=== PATIENT | male | born 1995 | race Caucasian/White ===

== ENCOUNTER 2018-10-12 12:39 | Inpatient (IN) | payer OTHER ==
[~2018-10-12] VITALS: Ht 177.8 cm; Wt 63.5 kg
--- NOTE | 2018-10-12 12:45 | NUR ---
Pre-assessment Note Pre-Assessment done at intake office, client is A/O x4, fully ambulatory, he presents with flat affect and anxious mood. Client reports NKDA. Client verbalized understanding of disposal of unidentifiable pills and controlled medications, unit protocol regarding vital signs Q4H, blood drawn, and urine drug test.
[2018-10-12] MEDS ORDERED: CHOL10002 PO (13:04)
--- NOTE | 2018-10-12 13:10 | NUR ---
Admission Note: "I have a problem using drugs and can't stop." Admitted a 23 year-old male for medically supervised withdrawal from heroin and benzodiazepine. Client is alert and oriented x 4, fully ambulatory. CIWA ad COWS deferred, client is mild intoxicated, he took Klonopin 1mg PO 1 hr before admission and @ 1000 he used heroin 0.4mg IV. he is noted with pinpoint pupils, anxious mood, restless, he is hyperverbal with racing thoughts, and he appear disheveled with long/oily hair, dirt under fingernails, scattered dry scabs on back and face d/t skin picking, strong body odor, and stained clothes. He appears malnourished, skin pale, dry lips, cheeks appear hollow and sunken eyes, dark circles under eyes, loss of body fat and muscle. Client reports losing weight without trying for the last 3 months, he said, "I haven't had much of an appetite, specially when I'm using heroin, which pretty much is every day." Client reports NKA, Full code, and regular diet. Vitals T 98.0, P 113, RR 16, BP 113/69, spO2 @ 99% on RA, no pain. Client reports being placed on a 5150, when he was 15 years old, he said, "I was really depressed and had suicidal thought, I told my parents and they took me to see a psychiatrist, I was diagnosed with depression and anxiety." Client denies any SI/HI. Client denies any history of withdrawal induced delirium, cardiac complications, overdose, or blackouts. He states that typical withdrawal sx include skin very sensitive to touch, have problems sleeping, no appetite, sweats, irritable, anxious, and depressed, he said, "Mornings, are the worst, I feel so down and is hard to even get out of bed." He said his symptoms get better as soon as he uses heroin and methamphetamine. He usually takes Klonopin when in awkward social situations. Substance Use History: 1) Heroin: he started using at age 16 via intravenously 0.2g daily, eventually he need to increase the dose to get the same effect, for the past three months he has been using 0.5g daily, last time consumed @ 1000 before admission. On occasion when he can not afford to buy heroin, he uses Subutex 2mg SL to help him get through the cravings and withdrawal symptoms. 2) Prescribed Klonopin: 1 mg/ 4 times a week since age 15. Last used 1mg PO 1 hour prior to admission. 3) Methamphetamine: started using since age 19. he uses 0.2gm daily smoked or IV, last used 6 hr prior to admission. 4) Marijuana: smokes 1-2 joints daily since he is 15 years-old. Psychiatric Conditions: 1. Anxiety: diagnosed at 15 years old. Prescribed Klonopin 1mg PRN 2.Depression, diagnosed at 15 years old. Client did not bring any home medications, but reports taking Vitamin D 5,000 units daily. Client denies any history of medical conditions. PCP John Amado MD Treatment History: First time in treatment in 2011 for 45 days at [facility] in [place]. Client has attempted to get sober on his own the longest period was for 6 months from January to mid-June 2018, but realized that if he wants to succeed he needs to go detox and to treatment, he said, "I want my life to move forward, it seems like everyday I move backward and it hurts my parents." Client reports taking substances just to feel normal, he has suffered for years with anxiety and depression. Client reports the consequences of his substance use are strained relation with his parents whom he is fully dependent on and the loss of his job at [employer] two years ago. Client would like to continue with his treatment, he said, "I was never really ready to stop, until now." He lives with is Mom and dad and his best friend Tramaine, his parents do not have history of substance use, but his friend Tramaine smokes cannabis on a daily basis. Dr Jim notified of client's admission. Client has not provided urine for urine drug screen. Client oriented to the unit and explained rules, procedures, and protocols. All safety measures instituted. [place] precaution. Call light within reach. Will continue to monitor.
--- NOTE | 2018-10-12 16:00 | NUR ---
DAMIAN and COWS deferred client stated, "I'm good right now, I still feeling the effects of my early use."
[2018-10-12] MEDS ORDERED: METHOCARBAMOL 750 MG TABLET PO PRN (16:15)
[2018-10-12] MEDS ORDERED: LOPERAMIDE HCL 2 MG CAPSULE PO PRN ×2 (16:15)
[2018-10-12] MEDS ORDERED: MIRALAX 17 GM POWD.PACK PO PRN (16:15)
[2018-10-12] MEDS ORDERED: diphenhydrAMINE 50 MG CAPSULE PO PRN (16:15)
[2018-10-12] MEDS ORDERED: CLONIDINE HCL 0.1 MG TABLET PO PRN (16:15)
[2018-10-12] MEDS ORDERED: BUPRENORPHINE HCL 2 MG TAB.SUBL SL PRN (16:15)
[2018-10-12] MEDS ORDERED: HYDROXYZINE PAMOATE 25 MG CAPSULE PO PRN (16:15)
[2018-10-12] MEDS ORDERED: LORAZEPAM 0.5 MG TABLET PO PRN (16:15)
[2018-10-12] MEDS ORDERED: IBUPROFEN 600 MG TABLET PO PRN (16:15)
[2018-10-12] MEDS ORDERED: MAG HYDROX/AL HYDROX/SIMETH 30 ML LIQUID UDC PO PRN (16:15)
[2018-10-12] MEDS ORDERED: 3 DAY TAPER BUPRENORPHINE -SERENITY PROTOCOL SL PRN (16:15)
[2018-10-12] MEDS ORDERED: ONDANSETRON ODT 4 MG TAB.RAPDIS SL PRN (16:15)
[2018-10-12] MEDS: MULTIVITAMINS,THERAPEUTIC TABLET PO SCH (16:15)
[2018-10-12] MEDS ORDERED: ONDANSETRON 4 MG/2 ML VIAL IM PRN (16:15)
[2018-10-12] MEDS ORDERED: MAGNESIUM HYDROXIDE 30 ML LIQUID UDC PO PRN (16:15)
[2018-10-12] MEDS ORDERED: ACETAMINOPHEN 325 MG TABLET PO PRN (16:15)
[2018-10-12 16:36] VITALS: BP 110/63
--- NOTE | 2018-10-12 19:22 | NUR ---
END OF SHIFT Endorse client to incoming nurse, client is in room, a/o x 4, fully ambulatory, client presents with depressed mood and flat affect. Client has Subutex order as needed. Consumes 100% of meals. Adequate PO fluid intake 1710mL. Client has not provided urine. Call light within reach.
[2018-10-12 20:00] VITALS: BP 117/60
--- NOTE | 2018-10-12 20:00 | NUR ---
Start of Shift Patient is withdrawn, avoidant with conversation and appears anxious. When being spoken to, patient avoids eye contact and verbalized, I just want to be left alone for now. Patient has hypoactive movements and observed to be disheveled and unkempt. He is also noted to have a strong body odor and with dirty fingernails. Patient c/o generalized pain=2/10. 3-day Subutex taper to start in the morning. Fall, universal and safety prec in place. Call light within reach. Last COWS=6. Will continue to monitor.
[2018-10-13] VITALS: BP 110/66
[2018-10-13 02:16] LABS: BASOPHILS % (AUTO) 0.5 % (0.0-2.0); EOSINOPHILS # (AUTO) 0.2 K/uL (0.0-0.7); EOSINOPHILS % (AUTO) 3.1 % (0.0-7.0); HEMATOCRIT 38.1 % (36.7-47.1); HEMOGLOBIN 13.1 g/dL (12.5-16.3); LYMPHOCYTES # (AUTO) 1.9 K/uL (20.0-40.0); LYMPHOCYTES % (AUTO) 32.1 % (20.5-51.5); MEAN CORPUSCULAR HGB CONC 35 g/dL (32.5-36.3); MEAN CORPUSCULAR VOLUME 89.7 fL (73.0-96.2); MONOCYTES # (AUTO) 0.6 K/uL (2.0-10.0); MONOCYTES % (AUTO) 9.2 % (0.0-11.0); NEUTROPHILS # (AUTO) 3.3 K/uL (1.8-8.9); NEUTROPHILS % (AUTO) 55.1 % (38.5-71.5); PLATELET COUNT (AUTO) 221 K/uL (152-348); RED BLOOD CELL COUNT(AUTO) 4.24 MIL/uL (4.06-5.63)
[2018-10-13 02:48] LABS: ALANINE AMINOTRANSFERASE 15 U/L (16-63); ALKALINE PHOSPHATASE 57 U/L (50-136); ASPARTATE AMINOTRANSFERASE 9 U/L (15-37); BILIRUBIN,TOTAL 0.2 mg/dL (0.2-1.0); CARBON DIOXIDE 29 mmol/L (21-32); CHLORIDE 104 mmol/L (98-107); CREATININE 0.9 mg/dL (0.6-1.3); GLUCOSE 91 mg/dL (74-106); POTASSIUM 3.6 mmol/L (3.5-5.1); TOTAL PROTEIN, SERUM 6.7 g/dL (6.4-8.2); UREA NITROGEN, BLOOD 11 mg/dL (7-18)
[2018-10-13 03:02] LABS: THYROID STIMULATING HORMONE 0.577 mIU/mL (0.358-3.740)
[2018-10-13 03:24] LABS: ETHANOL < 3 MG/DL (0-0)
--- NOTE | 2018-10-13 07:12 | NUR ---
End of Shift Patient continues to be withdrawn, avoidant with conversation and appears fatigued. Patient verbalized, Im still catching up with sleep. Patient continues to be disheveled, unkempt and with strong body odor. Encouraged patient to take a shower this morning and educated patient with the importance of maintaining a good hygiene. Patient still c/o on and off generalized pain, with current pain level=2/10. 3-day Subutex taper to start today. Fall, universal and safety prec in place. Call light within reach. Last COWS=8 and slept for 9 hours. Endorsed to AM shift nurse for continuity of care.
--- NOTE | 2018-10-13 07:20 | NUR ---
Start Of Shift Report received from broadcast producer nurse. Admitted a 23 year-old male for medically supervised withdrawal from heroin and benzodiazepine. Per broadcast producer nurse pt's last COWS was 8. Pt continues 3 day Subutex taper. Upon start of shift pt noted laying in bed with eyes closed resting, breathing even and unlabored. When greeted pt stated " When are the morning meds going to be passed out?". Pt's room appears unorganized and messy, pt has clothes thrown around the room. Pt appears anxious, sweaty and flushed. During assessment, pt is AOx4. Lung sounds clear bilaterally. Radial pulse is regular and non-bounding. Abdomen soft and non-tender. Pt's skin is warm and intact. pt denies any pain at the moment. Encouraged pt to drink plenty of fluids to keep hydrated and help the detox process. Pt received No PRN medications last night, pt slept a total of 9 hours last night. Bed in lowest position. Side rails up x2. Call light functioning and within reach. All needs attended and met. Will continue to monitor.
[2018-10-13 08:00] VITALS: BP 102/65
[2018-10-13] MEDS ORDERED: TUBERCULIN,PURIF.PROT.DERIV. 5 TU/0.1 ML TEST ID ONE (09:00)
[2018-10-13] MEDS: MULTIVITAMINS,THERAPEUTIC TABLET PO SCH (09:25)
[2018-10-13] MEDS: BUPRENORPHINE HCL 2 MG TAB.SUBL SL SCH ×2 (09:25→21:35)
[2018-10-13 12:00] VITALS: BP 106/62
[2018-10-13 13:49] LABS: *AMPHETAMINE, URINE POSITIVE (NEGATIVE); *BARBITURATE, URINE NEGATIVE (NEGATIVE); *CANNABINOID, URINE POSITIVE (NEGATIVE); *COCCAINE, URINE NEGATIVE (NEGATIVE); *OPIATE, URINE POSITIVE (NEGATIVE); *PHENCYCLIDINE SCREEN,URINE NEGATIVE (NEGATIVE)
[2018-10-13 16:00] VITALS: BP 111/68
--- NOTE | 2018-10-13 19:17 | NUR ---
End of Shift Report given to night nurse nurse, Plan of care followed, Vital signs monitored closely Q4H. Withdrawals symptoms were closely monitored, medications given as schedule. Initial COWS 9. Pt encouraged adequate PO fluid intake as tolerated to compensate for all the water lost in sweat as well as with helping speed up the detox process. Pt presented with diaphoresis, anxiety restless legs, yawning agitation, emotional volatility and restlessness during the day. Pt received all of the scheduled medications. Pt did not receive any PRN medications during the day. Last COWS 8. Pt reported that Subutex has been working well at controlling the withdrawal symptoms. Pt ate all of the meals. Pt did not attended all the groups and activities to learn new coping skills to prevent relapse. Pt denies any SI/HI. All safety measures in place, bed in lowest locked position, call light within reach. All needs met and attended.
[2018-10-13 20:00] VITALS: BP 103/53
--- NOTE | 2018-10-13 20:00 | NUR ---
Start of Shift Patient appears sweaty, unkempt and disheveled. He is noted to be anxious and avoidant with conversation. Patient c/o feeling tired, and appears fatigued. Patient is emotionally volatile and verbalized feeling restless intermittently. Patient also c/o restless legs and on and off generalized pain, with current pain level=3/10. 1st day of the 3-day Subutex taper started today. Fall, universal and safety prec in place. Call light within reach. Last COWS=9. Will continue to monitor.
--- NOTE | 2018-10-13 21:36 | NUR ---
PRN Robaxin Patient c/o generalized muscle pain=04/06. Administered Robaxin 750 mg PO PRN. Will reassess.
--- NOTE | 2018-10-13 22:36 | NUR ---
Robaxin reassess Patient verbalized that generalized pain level has decreased to 2/10.
[2018-10-14] VITALS: BP 98/55
--- NOTE | 2018-10-14 04:00 | NUR ---
COWS deferred Patient asleep on bed, with no SOB nor facial grimacing noted. COWS deferred per MD order. RR=14.
[2018-10-14 07:07] LABS: HEPATITIS B SURFACE AG Negative (Negative)
--- NOTE | 2018-10-14 07:21 | NUR ---
End of Shift Patient is friendly but continues to be withdrawn and has a flat affect. He avoids conversation and c/o intermittent episodes of anxiety throughout the shift. Patient verbalized feeling tired. He has hypoactive body movements. Patient also continues to c/o restless legs and on and off generalized pain, with current pain level=2/10. PRN Robaxin administered and it was effective. Today will start the 2nd day of his 3-day Subutex taper. Fall, universal and safety prec in place. Call light within reach. Last COWS=8 and slept for 10 hours. Endorsed to AM shift nurse for continuity of care.
--- NOTE | 2018-10-14 07:30 | NUR ---
START OF SHIFT Endorse rcvd from ongoing nurse, client is in room, lying on his L side, he sounds asleep, easy to awake, RR 16, even, non-labored. Client is on 2nd of 3 day Subutex taper, last COWS 8 @ 2400. PRN Robaxin 750mg PO for generalized myalgia. Client slept 10 hrs. [place] precautions. bed in lowest/locked position. Call light within reach.
[2018-10-14 08:14] VITALS: BP 98/52
[2018-10-14] MEDS: MULTIVITAMINS,THERAPEUTIC TABLET PO SCH (08:57)
--- NOTE | 2018-10-14 08:57 | NUR ---
CIWA 14 Client appears disheveled, oily hair, dirty long fingernails, he appears malnourished, dry lips, sunken eyes, and dark circles under eyes. He presents with depressed mood, flat affect, avoidant gaze, dilated pupils, clammy skin, goosebump, and difficulty concentrating. He reports poor appetite, stomach cramps, generalized sensitivity to touch, irritability, anxiety, and cravings. Schedule Subutex 2mg SL administered. Encourage client to increase PO fluid intake to facilitate detox. Call light within reach.
[2018-10-14] MEDS: BUPRENORPHINE HCL 2 MG TAB.SUBL SL SCH ×3 (09:03→21:03)
--- NOTE | 2018-10-14 09:25 | NUR ---
Therapist prompted client to attend all daily group therapy sessions.
[2018-10-14 12:55] VITALS: BP 102/54
--- NOTE | 2018-10-14 12:55 | NUR ---
COWS 13 Client presents with depressed mood, flat affect, flushed facial skin, tremors felt, poor concentration and fatigue. Client reports anxiety, irritability, and being really tired. Encourage client to attend group therapy to learn skills to mainrtain sober. Non-pharmacologic measures rendered. Call light within reach.
[2018-10-14 16:34] VITALS: BP 96/57
--- NOTE | 2018-10-14 16:55 | NUR ---
COWS 13 & PRN Vistaril 50mg PO administered for anxiety Client reports increase levels of anxiety, poor appetite, cold/chills, clammy skin, depression, difficult concentrating, difficulty thinking clearly, emotional volatility, enlarged pupils, fine tremors, flushed facial skin, yawning, and anhedonia, fatigue. Call light within reach.
--- NOTE | 2018-10-14 17:55 | NUR ---
Reassess PRN Vistaril 50mg, client is in bed, watching TV, he reports feeling slight relief from anxiety. Call light within reach.
--- NOTE | 2018-10-14 19:18 | NUR ---
END OF SHIFT Endorse client to incoming nurse, client is in room, a/o x 4, fully ambulatory, client continues to present with anxiety, poor appetite, cold/chills, clammy skin, depression, difficult concentrating, difficulty thinking clearly, emotional volatility, enlarged pupils, fine tremors, flushed facial skin, yawning, anhedonia, and fatigue. Client tends to isolate in his room. Client is on 2nd of 3 day Subutex taper, last COWS 13 @ 1700. Client is compliant with 1/3 of group therapy. Adequate PO fluid intake 1100mL, void x 3, stool x 1. Consumes 50% of meals. [place] precautions. Bed in lowest/locked position. Call light within reach.
--- NOTE | 2018-10-14 19:43 | NUR ---
START OF SHIFT NOTE Rcvd report form outgoing nurse. Pt is a 23 y/o male A/O to person, place, time, and purpose. Pt was admitted for medically supervised withdrawal from Heroin. Pt also has a substance use h/o Benzodiazepines and Methamphetamines. Pt is on day 2 of 3 day Subutex taper. Pt has been presenting w/ anxiety, depressed and withdrawn mood, sweats, chills, nasal stuffiness, abdominal cramps, and tremors. Pt rcvd PRN Vistaril and was noted effective by outgoing nurse. Last COWS 13 @ 1600. Call light is within reach. Pt will continue to be monitored and needs met.
[2018-10-14 20:00] VITALS: BP 92/58
--- NOTE | 2018-10-15 | NUR ---
COWS DEFERRED. V/S REFUSED Pt is in bed w/ his eyes closed. Pt's respirations are unlabored and even. Will continue to monitor pt.
--- NOTE | 2018-10-15 04:00 | NUR ---
COWS DEFERRED. V/S REFUSED Pt is in bed w/ his eyes closed. Pt's respirations are unlabored and even. Will continue to monitor pt.
--- NOTE | 2018-10-15 07:24 | NUR ---
END OF SHIFT NOTE Endorsed pt to oncoming nurse. Pt is a 23 y/o male A/O to person, place, time, and purpose. Pt was admitted for medically supervised withdrawal from Heroin. Pt also has a substance use h/o Benzodiazepines and Methamphetamines. Pt completed day 2 of 3 day Subutex taper. Pt continued presenting w/ anxiety, depressed and withdrawn mood, sweats, chills, nasal stuffiness, abdominal cramps, and tremors. Pt denies any S/I or H/I. No PRN medications were given during current shift. Pts fluid intake was 800ml and he slept for 10hrs. Last COWS 12 @ 2000. Call light is within reach.
--- NOTE | 2018-10-15 07:45 | NUR ---
START OF SHIFT Endorse rcvd from ongoing nurse, client is in room, he appears disheveled, oily hair, and dirt under long fingernails. Client presents with agitation, anxiety, flat affect, tremors felt, enlarged pupils, flushed facial skin, difficulty concentrating, and difficulty thinking clearly. Client reports cold/chills, clammy skin, generalized body aches, depression, fatigue, tremors felt, restless legs, nasal congestion, yawning, fatigue, and emotional volatility, Client is on last of 3 day Subutex taper, last COWS 12 @ 1999. Client had an uneventful night, he slept 10 hrs. [place] precautions. Bed in lowest/locked position. Call light within reach.
[2018-10-15 08:15] VITALS: BP 97/56
[2018-10-15] MEDS: MULTIVITAMINS,THERAPEUTIC TABLET PO SCH (08:40)
--- NOTE | 2018-10-15 08:40 | NUR ---
COWS 13 Client reports agitation, anxiety, cold/chills, clammy skin, generalized body aches, depression, enlarged pupils, fatigue, tremors felt, flushed facial skin, restless legs, nasal congestion, yawning, fatigue, emotional volatility, difficulty concentrating, and difficulty thinking clearly. Last dose of Subutex 2mg SL administered. Encourage client to attend group therapy to learn skills to maintain sober. Call light within reach.
[2018-10-15] MEDS ORDERED: BUPRENORPHINE HCL 2 MG TAB.SUBL SL SCH (09:00)
[2018-10-15 12:00] VITALS: BP 98/54
--- NOTE | 2018-10-15 12:00 | NUR ---
COWS 9 Client isolates in room, does not attend group therapy. He reports feeling very anxious, irritable, and fatigue. Deep breathing technique demonstrated, client returned demonstration. Will continue to monitor. Call light within reach.
[2018-10-15] MEDS ORDERED: HYDR-3895 PO (14:03)
[2018-10-15] MEDS ORDERED: DIPH50CA37 PO (14:03)
[2018-10-15] MEDS ORDERED: CLON0.1T14 PO (14:03)
[2018-10-15] MEDS ORDERED: METH-406 PO (14:03)
[2018-10-15 16:00] VITALS: BP 103/51
--- NOTE | 2018-10-15 16:00 | NUR ---
COWS 8 Client continues to present with anxiety, depression, tremors felt, poor appetite, yawning, and fatigue. Non-pharmacologic measures rendered. Call light within reach.
--- NOTE | 2018-10-15 16:18 | NUR ---
RT prompted pt to attend groups. Pt's improved group attendance was positively reinforced.
--- NOTE | 2018-10-15 19:15 | NUR ---
END OF SHIFT Endorse client to incoming nurse, client is in room, a/o x 4, fully ambulatory, client continues to present with anxiety, depression, enlarged pupils, tremors felt, poor appetite, yawning, and fatigue. Client is completed 3 day Subutex taper, last COWS 8 @ 1600. Client is compliant with 1/3 of group therapy. Adequate PO fluid intake 2901mL, void x 5. Consumes 50-75% of meals. [place] precautions. Bed in lowest/locked position. Call light within reach.
[2018-10-15 20:00] VITALS: BP 96/48
--- NOTE | 2018-10-15 20:00 | NUR ---
Start of Shift Patient appears calm, withdrawn and melancholic. He verbalized experiencing mild anxiety at the moment. He is noted to be disheveled and unkempt. He is observed to have dirty fingernails. Patient was encouraged to take a shower and educated regarding importance of maintaining a proper hygiene. Patient with bilateral hand tremors and does not c/o pain at this time. He stated that he has intermittent nausea, refused PRN medications at this time. Fall, universal, seizure and safety prec in place. Call light within reach. Last COWS=7. Will continue to monitor.
--- NOTE | 2018-10-16 | NUR ---
COWS deferred Patient asleep on bed, with no SOB nor facial grimacing noted. COWS deferred per MD order. RR=14.
--- NOTE | 2018-10-16 04:00 | NUR ---
COWS deferred Patient asleep on bed, with no SOB nor facial grimacing noted. COWS deferred per MD order. RR=12.
--- NOTE | 2018-10-16 07:21 | NUR ---
End of Shift Patient verbalized anxiety as well as excitement in him being discharged to [facility] today. He completed his Subutex taper. Encouraged patient to take a shower today as he is still noted to be disheveled and unkempt. No c/o at this time and he has mild bilateral hand tremors. No PRNs administered during the shift. Fall, universal, seizure and safety prec in place. Call light within reach. Last COWS=7 and slept for 9 hours. Endorsed to AM shift nurse for continuity of care.
--- NOTE | 2018-10-16 07:30 | NUR ---
Start of Shift Notes: Report received from day shift nurse. Per day shift nurse last COWS was 7. Upon start of shift pt was in bed, watching TV. During assessment, pt is AOx3. Respirations even and unlabored. Skin is warm and dry. No acute distress noted. Pt has completed Subutex taper to manage withdrawal symptoms. Pt is scheduled to be discharged today. Bed in lowest position. Side rails up x2. Call light functioning and within reach. All needs attended and met. Will continue to monitor.
[2018-10-16 08:00] VITALS: BP 101/64
[2018-10-16] MEDS: MULTIVITAMINS,THERAPEUTIC TABLET PO SCH (08:16)
[2018-10-16] MEDS ORDERED: NALO4SPR NS (09:22)
--- NOTE | 2018-10-16 09:51 | NUR ---
Discharge note: Pt left to [facility] in stable condition. All valuables and belongings returned to pt. Discharge education and teaching initiated. Pt verbalized understanding. Pt left the unit on 950
--- NOTE | 2018-10-16 10:10 | NUR ---
Start of Shift Notes: Report received from day shift nurse. Per day shift nurse last COWS was 7. Upon start of shift pt was in bed, watching TV. During assessment, pt is AOx3. Respirations even and unlabored. Skin is warm and dry. No acute distress noted. Pt has completed Subutex taper to manage withdrawal symptoms. Pt is scheduled to be discharged today. Bed in lowest position. Side rails up x2. Call light functioning and within reach. All needs attended and met. Will continue to monitor. Addendum: 10/16/18 at 1015 by EVAN CARLOS RN ERROR WRONG TIME
== END 2018-10-16 09:51 | disposition other institution (70) | DRG 895 ==
LOC: SRC 12:39
PROVIDERS: ADMIT Family Medicine Addiction Medicine; ATTEND Family Medicine Addiction Medicine
PROC: HZ2ZZZZ Detoxification Services for Substance Abuse Treatment (ICD-10-PCS; principal; 2018-10-12)
PROC: HZ41ZZZ Group Counseling for Substance Abuse Treatment, Behavioral (ICD-10-PCS; 2018-10-13)
PROC: HZ31ZZZ Individual Counseling for Substance Abuse Treatment, Behavioral (ICD-10-PCS; 2018-10-14)
DX: F11.23 Opioid dependence with withdrawal (principal); F13.230 Sedative, hypnotic or anxiolytic dependence with withdrawal, uncomplicated; F15.23 Other stimulant dependence with withdrawal; Z91.89 Other specified personal risk factors, not elsewhere classified; F32.9 Major depressive disorder, single episode, unspecified; F17.209 Nicotine dependence, unspecified, with unspecified nicotine-induced disorders; F41.1 Generalized anxiety disorder; F12.10 Cannabis abuse, uncomplicated
CPT/HCPCS: 36415; 70030-TC; 80307; 80324; 80349; 80361; 83735; 84443; 85025; 86592; 86705; 86803; 87340; 87806; A4663; G0480